=== PATIENT | male | born 1955 | race Caucasian/White ===

== ENCOUNTER → 2018-12-27 | Outpatient (CLI) | payer BC ==
--- NOTE | 2018-12-27 15:15 | KCIC ---
EXAM: Abdomen and pelvis CT without intravenous contrast. HISTORY: Left flank pain. TECHNIQUE: Computed tomographic images of the abdomen and pelvis were obtained without contrast. Multiplanar reformatting was performed. *One or more of the following individualized dose reduction techniques were utilized for this examination: 1. Automated exposure control. 2. Adjustment of the mA and/or kV according to patient size. 3. Use of iterative reconstruction technique. COMPARISON: None. FINDINGS: Evaluation of the lower thorax is limited due to respiratory motion. No infiltrate or nodule is seen. There is mild distal esophageal mucosal thickening likely due to relative under distention. This is not clearly within limits to suggest esophagitis. There is a 1.1 cm hypodense lesion within the right hepatic lobe. There may be smaller hypodense lesion superior to this location. The gallbladder, pancreas, spleen and adrenal glands are unremarkable. There is a 5 mm nonobstructing stone within the mid zone of the right kidney. There is no evidence of obstructive uropathy. There are multiple hypodense lesions within the left kidney, the largest of which measures 4.8 cm and is consistent with a cyst. Evaluation for small renal lesions is limited in the absence of contrast. There is distal colonic diverticulosis. There is no diverticulitis. There is no bowel obstruction. There is no lymphadenopathy. The urinary bladder is unremarkable. There are small right greater than left fat-containing inguinal hernias. There is lumbar scoliosis and degenerative change involving the lumbar spine. IMPRESSION: 1. Right nephrolithiasis. There is no evidence of obstructive uropathy. 2. Multiple left renal cysts. 3. 1.1 cm hypodense lesion within the liver. In the absence of known malignancy, this likely a cyst or hemangioma. There may be a small cyst or hemangioma slightly superior to this lesion. 4. Colonic diverticulosis. Electronically signed by: Rakel Khan MD (12/27/2018 3:12 PM) [place] [id number]
== END | disposition home or self-care (01) ==
LOC: KCIC CT 14:51
PROVIDERS: ATTEND Family Medicine
DX: N20.0 Calculus of kidney (principal); N28.1 Cyst of kidney, acquired; K57.30 Diverticulosis of large intestine without perforation or abscess without bleeding; K76.89 Other specified diseases of liver; M41.86 Other forms of scoliosis, lumbar region; M47.896 Other spondylosis, lumbar region; K40.90 Unilateral inguinal hernia, without obstruction or gangrene, not specified as recurrent
CPT/HCPCS: 74176

== ENCOUNTER → 2020-04-25 | Outpatient (CLI) | payer BC ==
[~2020-04-25] MED LIST: CONTRAST GIVEN. MC PRN; IOHEXOL 240 MG/ML 50ML VIAL. PO ONE; IOHEXOL 300 MG/ML 100ML VIAL. IV ONE
--- NOTE | 2020-04-25 16:50 | KCIC ---
CT abdomen and pelvis with contrast History: Renal cyst Technique: After the administration of intravenous contrast, CT imaging was performed of the abdomen and pelvis. Oral contrast was also given. Multiplanar images are reviewed. Exposure: One or more of the following individualized dose reduction techniques were utilized for this examination: 1. Automated exposure control 2. Adjustment of the mA and/or kV according to patient size 3. Use of iterative reconstruction technique. Comparison: 12/27/2018 Findings: There is a 0.4 cm inferior right renal calculus as seen previously. Both kidneys enhance, no hydronephrosis. There is a 2.5 cm cyst of the inferior left kidney, also 5.2 cm superior left renal cyst. There are about 4 other smaller foci of hypodensity of the left kidney otherwise difficult to accurately characterize, also difficult to compare as poorly distinguished on the previous noncontrast exam. Largest of these measures about 0.6 cm. There is a 1.5 cm cyst of the superior right renal pelvis. There is hypodense lesion of the right lobe of the liver about 1.1 cm in size unchanged in size with density measurements suggestive of a cyst. There are about 3 other tiny hypodense foci of the liver too small to accurately compare and characterize, largest about 0.4 cm. There is again small dense left lower lobe pulmonary nodule 0.2 cm. There is no adrenal nodularity. No new focal abnormality is identified of the pancreas or spleen. Gallbladder is present without obvious intraluminal abnormality by CT. Bowel is not dilated. There is no free fluid or free air. No new significant enlarged nodes are identified. There is mild plaque of the abdominal aorta. There is some fat in the inguinal canals bilaterally as seen previously, no internal bowel. There is multilevel lumbar facet degenerative change. There is fairly severe degenerative disc disease L1-L2, L3-4, L4-5. There is neural foramina compromise greatest on the right at L1-L2 and L4-5 and on the left at L1-2 and L3-4. There is degree of lateral recess stenosis bilaterally at L3-4. There is mild mid lumbar dextroscoliosis. There is mild right lateral subluxation of L3 relative L4. IMPRESSION: 1. There are bilateral renal cysts, some other smaller hypodense foci of the left kidney otherwise difficult to compare and characterize due to small size. There is right hepatic cyst, other smaller hypodense foci of the liver too small to accurately characterize. 2. There is again nonobstructive right renal calculus. 3. There is multilevel lumbar degenerative disc disease. There is multilevel lumbar neural foramina compromise and facet degenerative change, also lateral recess stenosis greatest at L3-4. Electronically signed by: Marquez Yuan MD (04/25/2020 4:48 PM) [id number]
== END | disposition home or self-care (01) ==
LOC: KCIC CT 12:28
PROVIDERS: ATTEND Family Medicine
DX: N20.0 Calculus of kidney (principal); N28.89 Other specified disorders of kidney and ureter; Q61.00 Congenital renal cyst, unspecified; I70.0 Atherosclerosis of aorta; M47.896 Other spondylosis, lumbar region; M48.061 Spinal stenosis, lumbar region without neurogenic claudication; M41.86 Other forms of scoliosis, lumbar region; M53.2X6 Spinal instabilities, lumbar region
CPT/HCPCS: 74177; Q9966; Q9967